=== PATIENT | male | born 1975 | race Caucasian/White ===

== ENCOUNTER 2016-10-23 21:15 | Emergency (ER) | payer BC ==
[~2016-10-23] VITALS: Ht 182.9 cm; Wt 132.6 kg
[~2016-10-23 21:15] MED LIST: BUSPAR7.5 MG PO; CELEXA; LISINOPRIL10 MG PO; METOPROLOL SUCC25 MG PO; NAPROSYN500 MG PO; NORCO 5/3251 TABLET PO; PRILOSEC
[2016-10-23 22:01] LABS: HEMATOCRIT 39.8 % (38.0-50.0); MCH 29.1 PG (29.0-34.0); MCHC 34.7 G/DL (30.0-36.0); MCV 83.8 FL (86-99); RBC DIS.WIDTH-CV 12.8 % (11.8-14.6); RED BLOOD COUNT 4.75 M/uL (4.00-5.50); WHITE BLOOD COUNT 8.8 K/uL (4.1-10.2)
[2016-10-23 22:09] LABS: CHLORIDE 106 mEq/L (99-109); POTASSIUM 3.9 mEq/L (3.7-5.4); SODIUM 141 mEq/L (136-147)
[2016-10-23 22:11] LABS: GLUCOSE 96 mg/dL (70-99)
[2016-10-23 22:12] LABS: ANION GAP 10 MEQ/L (2-14)
[2016-10-23 22:15] LABS: GFR ESTIMATE (CALCULATED) > 59 mL/min/
[2016-10-23 22:16] LABS: UREA NITROGEN (BUN) 9 mg/dL (9-23)
[2016-10-23 22:22] LABS: TROP-I INTERPRETATION NEGATIVE; TROPONIN-I < 0.01 ng/mL (0.0-0.30)
[2016-10-23 23:23] LABS: MEAN PLAT.VOLUME 11.8 uM^3 (9.0-12.4); PLAT.SUFFICIENCY ADEQUATE; PLATELET COUNT 164 K/uL (156-360)
[2016-10-23] MEDS ORDERED: LISINOPRIL40 MG PO (23:42)
[2016-10-24 00:35] LABS: TROP-I INTERPRETATION NEGATIVE; TROPONIN-I 0.01 ng/mL (0.0-0.30)
[2016-10-24 01:22] VITALS: BP 133/78
== END 2016-10-24 01:27 | disposition home or self-care (01) ==
LOC: EME 21:15
PROVIDERS: Physician Assistant Medical
DX: R51 Headache (principal); R07.9 Chest pain, unspecified; I10 Essential (primary) hypertension; Z87.891 Personal history of nicotine dependence
CPT/HCPCS: 71020; 80048; 84484; 85027; 93005; 99281; 99284; J1885